=== PATIENT | male | born 2000 | race Caucasian/White ===

== ENCOUNTER 2022-07-21 02:09 | Outpatient (CLI) | payer BC, SELFPAY | END 2022-07-21 02:10 | disposition home or self-care (01) | LOC: AMB 08-21 14:24 | PROVIDERS: Visit Provider Family Medicine | DX: G40.909 Epilepsy, unspecified, not intractable, without status epilepticus (principal) | CPT/HCPCS: A0425; A0427 ==

== ENCOUNTER 2024-07-16 11:25 | Emergency (ER) | payer MEDICAID, SELFPAY ==
[2024-07-16 11:33] VITALS: BP 163/100; PULSE 50; RESP 18; TEMP 36.4; BMI 16.3
--- NOTE | 2024-07-16 11:54 | ED.DENTAL ---
HPI - Dental/Oral General Date Seen: 07/16/24 Chief complaint: Dental/Oral/Mouth Injury/Pain Stated complaint: pain right side teeth Time Seen by Provider: 07/16/24 11:26 Source: patient Mode of arrival: ambulatory Limitations: no limitations History of Present Illness HPI Narrative: Patient is a 24-year-old male presenting to emergency department for dental pain. He states he woke up today and his back molars on the right top and bottom are painful and pain seems to shoot up into his head. States pain started when he woke up this morning around 7 a him. Has had quite a bit of dental issues in the past and goes to [facility]. He states they have a plan and are likely to pull some of his back molars. He was initially going to call him today but then was told to come to the emergency department 1st by family. He tried ibuprofen this morning without much improvement in his symptoms. Denies trismus, fevers, chills, difficulty swallowing. Does have pain with chewing on the right side. Related Data Home Medications ?Medication ?Instructions ?Recorded ?Confirmed levetiracetam 750 mg tablet 750 mg PO BID 10/14/23 10/14/23 Allergies Allergy/AdvReac Type Severity Reaction Status Date / Time No Known Drug Allergies Allergy Verified 10/14/23 17:07 Review of Systems Narrative: Pertinent systems reviewed and were negative unless stated in HPI PFSH PFS Social History Smoking Status: Light tobacco smoker What tobacco products do you use: cigarettes Do you use any of these nicotine containing products: Vaping Products Second hand tobacco smoke exposure: Yes How often do you have a drink containing alcohol: 2-4 times a month How many standard drinks containing alcohol do you have on a typical day: 3 or 4 How often do you have six or more drinks on one occasion: Less than monthly AUDIT-C Alcohol total score: 4 Non-prescribed substance use: marijuana (any form) service: No Exam Narrative: Exam Narrative: Const: Well-nourished, Well-developed, in mild distress Eyes: PERRL, no conjunctival injection, and symmetrical lids HENT: Atraumatic external nose and ears. Moist mucous membranes. Poor dentition with obvious dental. On tooth 1 and 32 consistent where he states the pain is. I do not see any signs of infection at this time though. MSK:Extremities w/o deformity, Normal Active ROM Skin: Warm, Dry. No rashes or lesions. Neuro: Normal Muscle tone, No focal neurological deficits. Psych: Awake, Alert, & Oriented x3. Appropriate mood and affect. Const: Vital Signs, click to edit/add: Vital Signs - 24 hr 07/16/24 11:33 Temperature 97.5 F L Pulse Rate [Pulse Oximeter] 50 L Respiratory Rate 18 Blood Pressure [Ri ght Upper Arm] 163/100 H Oxygen Delivery Me thod Room Air Course Vital Signs Vital signs: Initial Vital Signs Temperature 97.5 F L 07/16/24 11:33 Temperature Source Temporal Artery Scan 07/16/24 11:33 Pulse Rate 50 L 07/16/24 11:33 Pulse Rhythm Regular 07/16/24 11:33 Respiratory Rate 18 07/16/24 11:33 Blood Pressure 163/100 H 07/16/24 11:33 Blood Pressure Mean 121 H 07/16/24 11:33 Blood Pressure Position Supine 07/16/24 11:33 Oxygen Delivery Method Room Air 07/16/24 11:33 Vital Signs Temperature 97.5 F L 07/16/24 11:33 Pulse Rate 50 L 07/16/24 11:33 Respiratory Rate 18 07/16/24 11:33 Blood Pressure 163/100 H 07/16/24 11:33 Oxygen Delivery Method Room Air 07/16/24 11:33 Temperature 97.5 F L 07/16/24 11:33 Pulse Rate 50 L 07/16/24 11:33 Respiratory Rate 18 07/16/24 11:33 Blood Pressure 163/100 H 07/16/24 11:33 Oxygen Delivery Method Room Air 07/16/24 11:33 MDM - Dental/Oral MDM Narrative Medical decision making narrative: Pain to tooth 1 and 32 with no clear signs of infection. I do believe he needs to see dentist for further evaluation he states he is going to call them today to schedule an appointment. I do not think antibiotics are necessary at this time as again I see no signs of infection. I will prescribe him Toradol and gave him a dose of IM Toradol before discharge. He is agreeable to this plan. Discharge Plan Discharge Clinical Impression: Dental caries Patient Disposition: Home, Self-Care Condition: Stable Instructions: Tooth Extraction (DC) Additional Instructions: Make sure to call her dentist to set up follow-up as soon as you can. Return to emergency department for new or worsening symptoms. Take Tylenol and the Toradol for pain. While your using Toradol do not take ibuprofen or other NSAIDs as they are the same class of drugs. Prescriptions: No Action levetiracetam 750 mg tablet 750 mg PO BID Follow Up/Referrals: Provider,Not a Local [Primary Care Provider] - Stand Alone Forms: [employer] Info Instructions
[2024-07-16] MEDS: KETOROLAC 30 MG/ML inj IM (11:58)
== END 2024-07-16 12:01 | disposition home or self-care (01) ==
PROVIDERS: Emergency Provider Student in an Organized Health Care Education/Training Program
DX: K02.9 Dental caries, unspecified (principal)
CPT/HCPCS: 96372; 99282; 99283; J1885